=== PATIENT | female | born 1960 | race Caucasian/White ===

== ENCOUNTER 2021-03-27 19:40 | Emergency (ER) | payer BC ==
[~2021-03-27] VITALS: Ht 160 cm; Wt 52.0 kg
[2021-03-27] MEDS ORDERED: ESTROGEN TD (20:20)
[2021-03-27] MEDS ORDERED: IRBESARTAN75 MG PO ×2 (20:21→20:22)
[2021-03-27] MEDS ORDERED: LORAZEPAM0.5 MG PO (20:23)
[2021-03-27] MEDS ORDERED: CLONIDINE0.1 MG PO (20:24)
[2021-03-27 20:38] LABS: URINE BILIRUBIN - DIPSTICK NEGATIVE (NEGATIVE); URINE BLOOD DIPSTICK NEGATIVE (NEGATIVE); URINE COLOR YELLOW; URINE GLUCOSE - DIPSTICK NEGATIVE (NEGATIVE); URINE KETONE NEGATIVE (NEGATIVE); URINE LEUK ESTERASE TRACE (NEGATIVE); URINE PROTEIN - DIPSTICK NEGATIVE (NEG-TRACE); URINE UROBILINOGEN - DIPSTICK 0.2 E.U./dL (0.2)
[2021-03-27 20:40] LABS: HEMATOCRIT 38.9 % (37.0-47.0); HEMOGLOBIN 12.9 g/dl (12.0-16.0); MEAN CELL VOLUME 86.6 fL CALC (80.0-100.0); MEAN CORPUSCULAR HGB 28.7 pG CALC (26.0-32.0); MEAN CORPUSCULAR HGB CONC 33.2 g/dL CAL (32.0-36.0); NEUT# 3.5 thou/uL (2.00-7.15); RED BLOOD COUNT 4.49 mill/uL (4.20-5.60); RED CELL DISTRI WIDTH 12.9 % (11.5-15.5)
[2021-03-27 20:40] LABS: URINE NITRITE - DIPSTICK NEGATIVE (Negative)
[2021-03-27 20:58] LABS: ALBUMIN 4.5 g/dL (3.2-5.0); ALKALINE PHOSPHATASE 61 u/l (38-126); ANION GAP 13 (6-22 (CALC)); BILIRUBIN, TOTAL 0.2 mg/dL (0.0-1.4); BUN 11 mg/dL (8-23); BUN/CREATININE RATIO 15 (12-20 (CALC)); CARBON DIOXIDE 28 mmol/l (22-30); CHLORIDE 101 mmol/l (95-108); CREATININE 0.8 mg/dL (0.5-1.0); GFR > 60 ML/MIN (>=60 (CALC)); GFR FOR AFR.AMER. > 60 ML/MIN (>=60 (CALC)); POTASSIUM 3.9 mmol/l (3.5-5.1); SGOT/AST 24 u/l (9-36); SODIUM 139 mmol/l (137-146); TOTAL PROTEIN 7.6 g/dL (6.3-8.2)
[2021-03-27 21:06] LABS: MYOGLOBIN 22 ng/mL (0 - 62)
[2021-03-27] MEDS ORDERED: AMLODIPINE BESYL5 MG PO (21:43)
[2021-03-27 21:48] VITALS: BP 140/67
== END 2021-03-27 21:56 | disposition home or self-care (01) | DRG 305 ==
LOC: ED 19:40
PROVIDERS: Family Medicine
DX: I10 Essential (primary) hypertension (principal)